=== PATIENT | male | born 2000 | race Caucasian/White ===

== ENCOUNTER 2023-06-06 11:07 | Outpatient (AMB) | payer OTHER, SELFPAY ==
--- NOTE | 2023-06-06 11:33 | MHC.PC.OV ---
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 Patient states that he has a lump in his groin and has pain when he lifts things and thinks he may have a Hernia developing. Patient styates that he has dry skin on his left hand that he would like taken care of. 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: No Accompanied by: Girlfriend Allergies Seasonal Allergies Allergy (Intermediate, Verified 06/06/23 11:47) Sore Throat Medication List - Last Reconciled 06/06/23 by Philip Galloway CNP No Known Home Meds Tobacco use date assessed: 06/06/23 Dental Screening Dental Screen Date: 06/06/23 Did you have a dental visit in the last 12 months?: No Did you have a dental problem in the last 6 months where you did not have access to dental care?: No Was dental information given to patient?: Yes HPI HPI Comments History of Present Illness Details 22-year-old male presents to [facility] care. He notes he was last evaluated by his former PCP 6 years ago and had blood work done a year ago. He reports chronic mid to low back pain for the past 3-4 years. He notes that the pain intensifies while he is working. He has been taking Advil and Ibuprofen with some improvement. He reports occasional numbness. He denies tingling, loss of sensational, loss of bowel or bladder function. He notes that his back has never been evaluated by a medical professional. He also reports pain in his right groin only with lifting. He notes there is a lump in the right groin. His s/s have been present for the past 1 week. 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 He has been on the job for almost 7 years. He reports very skin of his left hand with occasional itching for the past 1 year. He has been applying lotion 3-4 times daily without improvement. He denies h/o anxiety and depression. [facility] Medical History (Updated 06/06/23 @ 12:23 by Philip Galloway CNP) Anxiety Back disorder Surgical History (Updated 06/06/23 @ 11:48 by Mirna Rodriguez MA) No pertinent past surgical history Family History (Updated 06/06/23 @ 11:59 by Mirna Rodriguez MA) Mother High cholesterol Alcoholism Psychiatric disorder Father High cholesterol Cancer Maternal Grandmother High blood pressure Cardiovascular disease Paternal Grandmother High cholesterol Clotting disorder Maternal Grandfather High cholesterol High blood pressure Diabetes Paternal Grandfather Pancreatic cancer Family/Other High cholesterol Psychiatric disorder Other Mental health disorder Social History Housing: House Patient Tobacco Use Status: Never used Tobacco e-Cigarette/Vaping Use: Currently Using Second Hand Smoke Exposure: No service: No Current occupational status: employed Current occupation: [employer] Cognitive needs: No Hearing needs: No Vision needs: No Questionnaire PHQ-9 Over the last 2 weeks, how often have you been bothered by any of the following problems? 1. Little interest or pleasure in doing things: not at all 2. Feeling down, depressed, or hopeless: not at all 3. Trouble falling or staying asleep, or sleeping too much: not at all 4. Feeling tired or having little energy: several days 5. Poor appetite or overeating: several days 6. Feeling bad about yourself - or that you are a failure or have let yourself or your family down: not at all 7. Trouble concentrating on things, such as reading the newspaper or watching television: more than half the days 8. Moving or speaking so slowly that other people could have noticed. Or the opposite - being so fidgety or restless that you have been moving around a lot more than usual: more than half the days 9. Thoughts that you would be better off or of hurting yourself in some way: not at all Total score: 6 Depression Screening Interpretation: Positive Source: Developed by Drs. Lester Vidal, Steffi Correa, Brando Ocampo and colleagues, with an educational denise from [employer]. Thrive Questionnaire Date Thrive assessed: 06/06/23 I am a: Patient What is your living situation today?: I have a steady place to live Within the past 12 months, did the food you bought not last and you didn't have the money to get more?: Never true Within the past 12 months, did you worry whether your food would run out before you got money to buy more?: Never true Do you have trouble paying for medicines?: No Do you have trouble getting transportation to medical appointments?: No Do you have trouble paying your heating and electricity bill?: No Do you have trouble taking care of your child, family member or friend?: No Do you have trouble with day-to-day activities such as bathing, preparing meals, shopping, managing finances, etc.?: Yes Are you currently unemployed and looking for a job?: No Are you interested in more education?: Yes Please select the resources that you would like help with: None Currently or been in a relationship where the following occur: no concerns reported AUDIT C Alcohol Use Questionnaire (AUDIT-C) 1. How often do you have a drink containing alcohol?: 2-3 times a week 2. How many drinks containing alcohol do you have on a typical day when you are drinking?: 3 or 4 3. How often do you have six or more drinks on one occasion?: Never Total Score: 4 ERASTO-7 AMB Questionnaire ERASTO-7 Date ERASTO - 7 assessed: 06/06/23 Feeling nervous, anxious, or on edge: 2 = More than half the days Not being able to stop or control worryin = Several days Worrying too much about different things: 1 = Several days Trouble relaxin = Not at all Being so restless that it is hard to sit still: 1 = Several days Becoming easily annoyed or irritable: 1 = Several days Feeling afraid as if something awful might happen: 0 = Not at all Total ERASTO-7 score (0-4 normal; 5-9 mild; 10-14 moderate; 15-21 severe): 6 Source: Developed by Drs. Lester Vidal, Steffi Correa, Brando Ocampo and colleagues, with an educational denise from [employer]. Review of Systems Const Details: Const Denies chills, Denies fatigue, Denies fever(s), Denies headache(s) and Denies weakness ENT Denies dizziness and Denies headache(s) Card Denies chest pain, Denies lightheadedness, Denies dyspnea and Denies other (Palpitations) Resp Denies cough, Denies dyspnea, Denies wheezing and Denies other ( shortness of breath) GI Denies abdominal pain, Denies melena, Denies hematochezia, Denies change in bowel habits, Denies dyspepsia and Denies nausea Reports pain and lump of the right groin, Denies hematuria and Denies dysuria Musc Reports back pain, Denies abnormal gait, Denies, Denies numbness and Denies tingling Skin/Breast Dry skin of left hand, Denies rash, Denies unusual bruising and Denies wounds Neuro Denies abnormal gait, Denies dizziness, Denies headache(s), Denies memory loss, Denies numbness, Denies Sensory deficit (Neuro), Denies tingling and Denies weakness Psych Denies anxiety and Denies depression, Denies memory loss Endo Denies cold intolerance, Denies fatigue, Denies heat intolerance, Denies polydipsia and Denies polyuria Aller/Immun Denies wheezing Physical exam (Primary Care) Vital Signs: Last Vital Signs Temp 98.6 F 06/06/23 11:35 Pulse 70 06/06/23 11:35 Resp 12 06/06/23 11:35 BP 114/60 06/06/23 11:35 Pulse Ox 99 06/06/23 11:35 Oxygen Delivery Method Room Air 06/06/23 11:35 BMI result Body Mass Index 17.3 Tobacco/Smoking Status: Tobacco use Status Tobacco use date assessed 06/06/23 06/06/23 11:46 Patient Tobacco Use Status Never used Tobacco 06/06/23 11:46 e-Cigarette/Vaping Use Currently Using 06/06/23 11:46 PHQ-9: PHQ-9 Score PHQ-9: Total score 6 06/06/23 11:57 Depression Screening Interpretation: Positive Thrive Assessment: Date of Thrive Assessment Date Thrive assessed 06/06/23 06/06/23 11:57 Currently or been in a relationship where the following occur: no concerns reported Const Other: General: no acute distress and well developed Nutritional Appearance: well nourished Orientation/consciousness: patient oriented x3 HENMT Head: Yes normocephalic and Yes atraumatic Eyes General: appearance normal, both eyes and all related structures Pupils: Equal, round and reactive pupils present EOM: EOMs intact bilaterally Resp Effort & Inspection: normal respiratory effort Auscultation: clear to auscultation bilaterally Cardio Rate: regular rate Rhythm: regular rhythm Heart sounds: S1 normal heart sound present, S2 normal heart sound present, no gallops, no murmurs and no rubs GI Palpation (GI): No Abdominal aortic bruit present, Soft to palpation, nontender, No hepatosplenomegaly present and No Rebound tenderness present Auscultation: normal bowel sounds General: Yes no CVA tenderness Back/Spine/Pelvis Back: no CVA tenderness Cervical Spine: cervical ROM normal and No Cervical spine tenderness Thoracic/Lumbar Spine: thoraco-lumbar ROM normal, No pain with thoraco-lumbar ROM, No thoracic spinal tenderness and No lumbar spinal tenderness Extrem General: Yes normal to inspection, No edema and No calf tenderness Negative straight leg raise bilaterally Skin General: warm and dry. Normal skin color. Normal skin turgor; very dry skin of the left hand Lesions: approx. quarter-sized, lightly tender, soft, mobile lump to the right upper thigh proximal to the groin; no hernia noted to both left and right groin Rashes: no rashes Trauma: no lacerations or abrasions Wounds: no wounds Nails: fungal infection of the nail of the left thumb Neuro General: patient oriented x3, gait normal and no focal neuro deficit Cranial nerves: Yes Equal, round and reactive pupils present Cognition (Neuro): normal cognition Gait exam (Neuro): Normal gait present Motor exam (neuro): 5/5 motor strength present throughout Sensory Exam: No Sensory deficit (Neuro) Deep tendon reflexes (DTR's): Right patellar reflex intensity grade: 2+ and Left patellar reflex intensity grade: 2+ Psych Appearance: grossly normal Affect: normal affect Attitude: cooperative Thought process: Normal thought process present Assessment and Plan Assessment & Plan (1) Chronic back pain: Code(s): M54.9 - Dorsalgia, unspecified; G89.29 - Other chronic pain Plan: Reports chronic mid to low back pain Naproxen ordered. Take as prescribed X-ray ordered Advised to avoid heavy lifting and to use his lower extremities to lift Follow-up in 1 month for labs review and a complete physical exam or return sooner with worsening or new symptoms Verbalized understanding and agreed with the treatment plan. (2) Right groin pain: Code(s): R10.31 - Right lower quadrant pain Plan: Reports pain in his right groin only with lifting. He notes there is a lump in the right groin. His s/s have been present for the past 1 week Approx. quarter-sized, lightly tender, soft, mobile lump to the right upper thigh proximal to the groin; no hernia noted to both left and right groin; likely lipoma Avoid heavy lifting or straining Naproxe as prescribed Follow up with worsening or new s/s Verbalized understanding and agrees with the treatment plan. (3) Dry skin: Code(s): L85.3 - Xerosis cutis Plan: He reports very skin of his left hand with occasional itching for the past 1 year. He has been applying lotion 3-4 times daily without improvement. Very dry skin of the left hand. Onychomycosis of the nail of the left thumb Dry skin may be attributed to fungal infection Ketoconazole ordered. Use as prescribed Follow-up with worsening or new signs and symptoms Verbalized understanding and agreed with treatment plan. (4) Laboratory tests ordered as part of a complete physical exam (CPE): Code(s): Z00.00 - Encounter for general adult medical examination without abnormal findings Plan: Fasting labs ordered as part of a complete physical exam. Advised to fast for at least 10 hours before getting labs drawn. May drink water Verbalized understanding and agreed with treatment plan. Orders: Orders Comprehensive [place]. Panel Fast Today Z00.00 - Encounter for general adult medical examination without abnormal findings Lipid Panel Today Z00.00 - Encounter for general adult medical examination without abnormal findings TSH reflex Free T4 Today Z00.00 - Encounter for general adult medical examination without abnormal findings Complete Blood Count Auto Diff Today Z00.00 - Encounter for general adult medical examination without abnormal findings UA CC w/rflx Micro + Cult Today Z00.00 - Encounter for general adult medical examination without abnormal findings XR thoracic spine 2V Today G89.29 - Other chronic pain, M54.9 - Dorsalgia, unspecified XR lumbar spine 2-3V Today G89.29 - Other chronic pain, M54.9 - Dorsalgia, unspecified Medications: New naproxen 500 mg PO BID PRN 60 tabs 2RF pain ketoconazole 2% 1 appl topical BID 30 grams 0RF Coding Level of Care Code New Pt Level 3 (46707) Diagnoses Chronic back pain M54.9; G89.29 Right groin pain R10.31 Dry skin L85.3 Laboratory tests ordered as part of a complete physical exam (CPE) Z00.00
[2023-06-06 11:35] VITALS: BP 114/60; PULSE 70; RESP 12; TEMP 37; O2SAT 99; BMI 17.3
== END 2023-06-06 12:22 | disposition home or self-care (01) ==
PROVIDERS: PCP Nurse Practitioner Family; Visit Provider Nurse Practitioner Family
DX: M54.9 Dorsalgia, unspecified (principal); G89.29 Other chronic pain; R10.31 Right lower quadrant pain; L85.3 Xerosis cutis; Z00.00 Encounter for general adult medical examination without abnormal findings
CPT/HCPCS: 99203

== ENCOUNTER 2024-09-16 15:02 | Outpatient (AMB) | payer OTHER, SELFPAY ==
--- NOTE | 2024-09-16 15:08 | MHC.PC.OV ---
Vital Signs 09/16/24 15:13 Height 5 ft 5 in Weight 111 lb 2 oz BMI 18.5 BP 112/68 Blood Pressure Location Lt brachial Position Sitting Respiration 12 Pulse 66 Pulse Source Pulse Oximeter Pulse Oximetry (%) 98 Oxygen Delivery Method Room Air Intake Visit Reasons: tetnis shot and refill on meds Intake Note: Patient is here for a tdap and refills on med. 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 He notes significant improvement with ketoconazole, however, he ran out a refills. He denies itching. He has been using CeraVe. He offers no other complaints. He request a tetanus vaccine. His last tetanus vaccine was 14 years ago [facility] Medical History (Updated 09/16/24 @ 15:46 by Philip Galloway CNP) Anxiety Back disorder Surgical History (Updated 06/06/23 @ 11:48 by MICHAEL Lara) No pertinent past surgical history Family History (Updated 06/06/23 @ 11:59 by MICHAEL Lara) Mother High cholesterol Alcoholism Psychiatric disorder Father High cholesterol Cancer Maternal Grandmother High blood pressure Cardiovascular disease Paternal Grandmother High cholesterol Clotting disorder Maternal Grandfather High cholesterol High blood pressure Diabetes Paternal Grandfather Pancreatic cancer Family/Other High cholesterol Psychiatric disorder Other Mental health disorder Social History Housing: House Patient Tobacco Use Status: Never used Tobacco e-Cigarette/Vaping Use: Currently Using Second Hand Smoke Exposure: No service: No Current occupational status: employed 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 1. Little interest or pleasure in doing things: not at all 2. Feeling down, depressed, or hopeless: not at all 3. Trouble falling or staying asleep, or sleeping too much: not at all 4. Feeling tired or having little energy: not at all 5. Poor appetite or overeating: not at all 6. Feeling bad about yourself - or that you are a failure or have let yourself or your family down: not at all 7. Trouble concentrating on things, such as reading the newspaper or watching television: not at all 8. Moving or speaking so slowly that other people could have noticed. Or the opposite - being so fidgety or restless that you have been moving around a lot more than usual: not at all 9. Thoughts that you would be better off or of hurting yourself in some way: not at all Total score: 0 68895 - PHQ-9 Billing: Yes Source: Developed by Drs. Lester Vidal, Steffi Correa, Brando Ocampo and colleagues, with an educational denise from [employer]. Thrive Questionnaire Date Thrive assessed: 09/16/24 I am a: Patient What is your living situation today?: I have a steady place to live Within the past 12 months, did the food you bought not last and you didn't have the money to get more?: Never true Within the past 12 months, did you worry whether your food would run out before you got money to buy more?: Never true Do you have trouble paying for medicines?: No Do you have trouble getting transportation to medical appointments?: No Do you have trouble paying your heating and electricity bill?: No Do you have trouble taking care of your child, family member or friend?: No Do you have trouble with day-to-day activities such as bathing, preparing meals, shopping, managing finances, etc.?: No Are you currently unemployed and looking for a job?: No Are you interested in more education?: No Please select the resources that you would like help with: None Currently or been in a relationship where the following occur: No concerns reported THRIVE Score: 0 AUDIT C Alcohol Use Questionnaire (AUDIT-C) 1. How often do you have a drink containing alcohol?: 2-4 times a month 2. How many drinks containing alcohol do you have on a typical day when you are drinking?: 3 or 4 3. How often do you have six or more drinks on one occasion?: Never Total Score: 3 ERASTO-7 AMB Questionnaire ERASTO-7 Date ERASTO - 7 assessed: 09/16/24 Feeling nervous, anxious, or on edge: 0 = Not at all Not being able to stop or control worryin = Not at all Worrying too much about different things: 0 = Not at all Trouble relaxin = Not at all Being so restless that it is hard to sit still: 0 = Not at all Becoming easily annoyed or irritable: 1 = Several days Feeling afraid as if something awful might happen: 0 = Not at all Total ERASTO-7 score (0-4 normal; 5-9 mild; 10-14 moderate; 15-21 severe): 1 Source: Developed by Drs. Lester Vidal, Steffi Correa, Brando Ocampo and colleagues, with an educational denise from [employer]. ERASTO-7 Assessment Billing ERASTO-7 Assessment Tool: ERASTO-7 Assessment 51487 Review of Systems Const Details: Const Denies chills, Denies fatigue, Denies fever(s), Denies headache(s) and Denies weakness ENT Denies dizziness and Denies headache(s) Card Denies chest pain, Denies lightheadedness, Denies dyspnea and Denies other (Palpitations) Resp Denies cough, Denies dyspnea, Denies wheezing and Denies other ( shortness of breath) GI Denies abdominal pain, Denies melena, Denies hematochezia, Denies change in bowel habits, Denies dyspepsia and Denies nausea Denies hematuria and Denies dysuria Musc Denies abnormal gait, Denies myalgias, Denies arthralgias, Denies numbness and Denies tingling Skin/Breast Denies rash, Denies unusual bruising and Denies wounds Neuro Denies abnormal gait, Denies dizziness, Denies headache(s), Denies memory loss, Denies numbness, Denies Sensory deficit (Neuro), Denies tingling and Denies weakness Psych Denies anxiety, Denies depression, Denies memory loss Endo Denies cold intolerance, Denies fatigue, Denies heat intolerance, Denies polydipsia and Denies polyuria Aller/Immun Denies wheezing Physical exam (Primary Care) Vital Signs: Last Vital Signs Pulse 66 09/16/24 15:13 Resp 12 09/16/24 15:13 BP 112/68 09/16/24 15:13 Pulse Ox 98 09/16/24 15:13 Oxygen Delivery Method Room Air 09/16/24 15:13 BMI result Body Mass Index 18.5 Tobacco/Smoking Status: Tobacco use Status Tobacco use date assessed 06/06/23 09/16/24 15:09 Patient Tobacco Use Status Never used Tobacco 09/16/24 15:09 e-Cigarette/Vaping Use Currently Using 09/16/24 15:09 PHQ-9: PHQ-9 Score PHQ-9: Total score 0 09/16/24 15:23 Thrive Assessment: Date of Thrive Assessment Date Thrive assessed 09/16/24 09/16/24 15:09 Currently or been in a relationship where the following occur: No concerns reported Const Other: General: no acute distress and well developed Nutritional Appearance: well nourished Orientation/consciousness: patient oriented x3 HENMT Head: Yes normocephalic and Yes atraumatic Eyes General: appearance normal, both eyes and all related structures Pupils: Equal, round and reactive pupils present EOM: EOMs intact bilaterally Resp Effort & Inspection: normal respiratory effort Auscultation: clear to auscultation bilaterally Cardio Rate: regular rate Rhythm: regular rhythm Heart sounds: S1 normal heart sound present, S2 normal heart sound present, no gallops, no murmurs and no rubs GI Palpation (GI): No Abdominal aortic bruit present, Soft to palpation, nontender, No hepatosplenomegaly present and No Rebound tenderness present Auscultation: normal bowel sounds General: Yes no CVA tenderness Back/Spine/Pelvis Back: no CVA tenderness Extrem General: Yes normal to inspection, No edema and No calf tenderness Skin General: warm and dry. Normal skin color. Normal skin turgor. Dry skin of the left hand noted. Skin is intact Neuro General: patient oriented x3, gait normal and no focal neuro deficit Cranial nerves: Yes Equal, round and reactive pupils present Cognition (Neuro): normal cognition Gait exam (Neuro): Normal gait present Sensory Exam: No Sensory deficit (Neuro) Psych Appearance: grossly normal Affect: normal affect Attitude: cooperative Thought process: Normal thought process present Immunizations Boostrix Tdap 2.5 Lf unit-8 mcg-5 Lf/0.5 mL intramuscular syringe Performing Provider: Philip Galloway CNP Performing Location: [facility] Administered by: Caryl Bernstein RN on 11/06/24 15:36 Dose Route Admin Location Dispensed Lot Number Expiration Date [employer] Mechan[employer] Apprentice 0.5 mL IM Right Deltoid 0.5 mL [id number] 09/26/26 54808-702-23 [employer] VIS Given Date VIS Provided VIS Publication Date 09/16/24 Single Vaccine 21 Eligibility Eligibility Date Funding Source Not VFC Eligible 09/16/24 Private Coding Level of Care Code Est Pt Level 3 (92062) Diagnoses Dry skin L85.3 Vaccine for tetanus toxoid Z23 Laboratory tests ordered as part of a complete physical exam (CPE) Z00.00 Additional Codes ERASTO-7 Assessment Billing - ERASTO-7 Assessment Tool: ERASTO-7 Assessment 12766 ([id number]) PHQ-9 - 47963 - PHQ-9 Billing: Yes ([id number]) Assessment & Plan Assessment & Plan (1) Dry skin: Code(s): L85.3 - Xerosis cutis Category: Medical Plan: Dry skin of the left hand for the past 2 years Dry skin of the left hand noted. Skin is intact Encouraged to use Lubriderm extra-dry skin lotion Follow-up if dry skin persist. May referred to dermatology Advised to get lab work done and follow-up for an extended physical exam and lab reviews Verbalized understanding and agreed with the treatment plan (2) Vaccine for tetanus toxoid: Code(s): Z23 - Encounter for immunization Category: Medical Plan: Tdap administered today by our nurse (3) Laboratory tests ordered as part of a complete physical exam (CPE): Code(s): Z00.00 - Encounter for general adult medical examination without abnormal findings Category: Medical Plan: Fasting labs ordered as part of a complete physical exam. Advised to fast for at least 10 hours before getting labs drawn. May drink water Verbalized understanding and agreed with treatment plan. Orders: Orders TDaP Immunization Today Z23 - Encounter for immunization Complete Blood Count Auto Diff Today Z00.00 - Encounter for general adult medical examination without abnormal findings Lipid Panel Today Z00.00 - Encounter for general adult medical examination without abnormal findings TSH reflex Free T4 Today Z00.00 - Encounter for general adult medical examination without abnormal findings Comprehensive [place]. Panel Fast Today Z00.00 - Encounter for general adult medical examination without abnormal findings UA CC w/rflx Micro + Cult Today Z00.00 - Encounter for general adult medical examination without abnormal findings
[2024-09-16 15:13] VITALS: BP 112/68; PULSE 66; RESP 12; O2SAT 98; BMI 18.5
== END 2024-09-16 15:35 | disposition home or self-care (01) ==
LOC: HO.HMCFM 15:03
PROVIDERS: PCP Nurse Practitioner Family; Visit Provider Nurse Practitioner Family
DX: L85.3 Xerosis cutis (principal); Z23 Encounter for immunization; Z00.00 Encounter for general adult medical examination without abnormal findings

== ENCOUNTER → 2024-09-16 15:02 | Outpatient (BNVA) | payer OTHER, SELFPAY | PROVIDERS: PCP Nurse Practitioner Family; Visit Provider Nurse Practitioner Family | DX: Z00.00 Encounter for general adult medical examination without abnormal findings (principal); Z23 Encounter for immunization; L85.3 Xerosis cutis | CPT/HCPCS: 90471; 90715; 96127 ==

== ENCOUNTER 2025-01-11 07:13 | Outpatient (REF) | payer OTHER, SELFPAY ==
--- OUTSIDE RECORDS SUMMARY | 2025-01-11 07:17 | XMS_ITS | Clinical Summary ---
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 Role Phone Unavailable Primary Care Provider Unavailabl e Social History Tobacco Use Types Packs/Day Years Used Date Smoking Tobacco: Never Assessed Sex and Gender Information Value Date Recorded Sex Assigned at Not on file Legal Sex Male 8:28 PM EST Gender Identity Not on file Sexual Orientation Not on file Plan of Treatment Health Maintenance Due Date Last Done Comments HPV Vaccines (1 - Male 3-dos e series) 2014 DTaP,Tdap,and Td Vaccines (1 - Tdap) 2018 Hepatitis B Vaccines (1 of 3 - 19+ 3-dose series) 2018 Depression Screening 12/06/2023 HIV Screening 12/06/2023 Hepatitis C Screening 12/06/2023 Social Influencers of Health Screening 12/06/2023 COVID-19 Vaccine ( - 2023-2 5 season) 2024 Influenza Vaccine (#1) 2024 HIB Vaccines Aged Out No longer eligi ble based on patient's age to complete this topic Hepatitis A Vaccines Aged Out No long er eligible based on patient's age to complete this topic IPV Vaccines Aged Out No longer eligi ble based on patient's age to complete this topic MMR Vaccines Aged Out No longer eligi ble based on patient's age to complete this topic Meningococcal ACWY Vaccine Aged Out N o longer eligible based on patient's age to complete this topic Meningococcal B Vacine Aged Out No lo nger eligible based on patient's age to complete this topic Pneumococcal Vaccine: Pediat rics (0 to 5 Years) and At-Risk Patients (6 to 64 Years) Aged Out No longer eligible b ased on patient's age to complete this topic RSV Immunization Patients Un brandon 20 months Aged Out No longer eligible b ased on patient's age to complete this topic Varicella Vaccines Aged Out No longer eligible based on patient's age to complete this topic
[2025-01-11 07:32] LABS: MANUAL DIFF FLAG NO
[2025-01-11 07:44] LABS: Basophils Absolute Auto 0.1 X10*3/uL (0.0-0.2); Eosinophils Absolute Auto 0.2 X10*3/uL (0.0-0.4); Eosinophils Percent Auto 3.5 % (0-4); Imm Gran Abs Auto 0.01 X10*3/uL (0.00-0.03); Imm Gran Pct Auto 0.2 % (0.0-0.4); Lymphocytes Absolute Auto 2.3 X10*3/uL (1.2-4.9); Lymphocytes Percent Auto 38.3 % (20-40); Mean Corpuscular HGB Conc 34.8 g/dl (31.0-36.0); Mean Corpuscular Hemoglobin 27.8 pg (27.0-33.0); Mean Corpuscular Volume 79.9 fL (80.0-98.0); Mean Platelet Volume 9.1 fL (9.4-12.4); Monocytes Absolute Auto 0.5 X10*3/uL (0.1-1.2); Monocytes Percent Auto 7.6 % (2-11); Neutrophils Percent Auto 49.4 % (45-73); Platelet Count 257 X10*3/uL (160-400); Red Blood Count 5.76 X10*6/uL (4.60-5.80); Red Cell Distribution Width 11.9 % (11.0-16.0)
[2025-01-11 08:20] LABS: Alanine Aminotransferase 27 U/L (0-40); Albumin Level 4.4 g/dL (3.5-5.0); Alkaline Phosphatase 69 U/L (39-117); Anion Gap 11 (12-20); Aspartate Amino Transferase 24 U/L (5-37); Bilirubin Total 0.4 mg/dL (0.0-1.0); Blood Urea Nitrogen 20 mg/dL (9-16); Calcium 9.2 mg/dL (8.4-10.2); Carbon Dioxide 28 mmol/L (22-29); Chloride 105 mmol/L (96-108); Cholesterol 174 mg/dL (<200); Estimated Glomerular Filt Rate > 60; Glucose Fasting 96 mg/dL (60-99); HDL Cholesterol 41 mg/dL (>40); LDL Cholesterol Calculated 118 mg/dL (<100); Potassium 4.2 mmol/L (3.3-5.1); Sodium 140 mmol/L (135-145); Total Protein 7.7 g/dL (6.5-8.0); Triglycerides 78 mg/dL (<150)
== END 2025-01-11 07:14 | disposition home or self-care (01) ==
LOC: HO.LAB 07:13
PROVIDERS: PCP Nurse Practitioner Family; Visit Provider Nurse Practitioner Family
DX: Z00.00 Encounter for general adult medical examination without abnormal findings (principal); Z13.220 Encounter for screening for lipoid disorders; Z13.29 Encounter for screening for other suspected endocrine disorder; Z13.0 Encounter for screening for diseases of the blood and blood-forming organs and certain disorders involving the immune mechanism
CPT/HCPCS: 36415; 80053; 80061; 84443; 85025

== ENCOUNTER 2025-01-12 08:04 | Outpatient (AMB) | payer OTHER, SELFPAY ==
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
[2025-01-12 08:10] VITALS: BP 111/53; PULSE 76; RESP 16; TEMP 36.7; O2SAT 97; BMI 19.0
--- OUTSIDE RECORDS SUMMARY | 2025-01-12 08:12 | XMS_ITS | Clinical Summary ---
Author Organization [facility] ity Address [address] [place] [address] Care Team Providers Care Supervisor Blasting Name Role Phone Unavailable Primary Care Provider [...]
--- OUTSIDE RECORDS SUMMARY | 2025-01-12 08:12 | XMS_ITS | Clinical Summary ---
Author Organization [facility] Address [address] [place] [address] Care Team Providers Care Reference Library Assistant Name Role Phone Unavailable Primary Care Provider Unavailabl e Social History Tobacco Use Types Packs/Day Years Used Date Smoking Tobacco: Never Assessed Sex and Gender Information Value Date Recorded Sex Assigned at Male 10/15/2022 12:32 PM EST Gender Identity Not on file Sexual Orientation Not on file Job Start Date Occupation Industry Not on file Not on file Not on file Plan of Treatment Health Maintenance Due Date Last Done Comments Hepatitis B Vaccines (1 of 3 - 3-dose series) 1999 Hepatitis C Screening 1999 COVID-19 Vaccine (#1) 01/05/2000 Depression Screening 2011 Preventative Health Evaluation 2017 DTap / Tdap / Td (1 - Tdap) 2018 Influenza Vaccine (#1) 2024 Pneumococcal Vaccine Aged Out No long er eligible based on patient's age to complete this topic RSV Ped < 20 months Aged Out No longe r eligible based on patient's age to complete this topic
== END 2025-01-12 08:33 | disposition home or self-care (01) ==
PROVIDERS: PCP Nurse Practitioner Family; Visit Provider Nurse Practitioner Family
DX: Z00.00 Encounter for general adult medical examination without abnormal findings (principal); E78.00 Pure hypercholesterolemia, unspecified; L85.3 Xerosis cutis

== ENCOUNTER → 2025-01-12 08:04 | Outpatient (BNVA) | payer OTHER, SELFPAY | PROVIDERS: PCP Nurse Practitioner Family; Visit Provider Nurse Practitioner Family | DX: Z00.00 Encounter for general adult medical examination without abnormal findings (principal); E78.00 Pure hypercholesterolemia, unspecified; L85.3 Xerosis cutis | CPT/HCPCS: 96127 ==

== ENCOUNTER 2025-04-10 07:31 | Outpatient (REF) | payer OTHER, SELFPAY ==
[2025-04-10 12:12] LABS: Cholesterol 170 mg/dL (<200); HDL Cholesterol 41 mg/dL (>40); LDL Cholesterol Calculated 118 mg/dL (<100); Triglycerides 56 mg/dL (<150)
[2025-04-10 12:36] LABS: Appearance Urine Clear; Color Urine Yellow; Glucose Urine UA Negative (Negative); Leukocyte Esterase Urine Trace (Negative); Nitrite Urine Negative (Negative); Specific Gravity - Urine 1.015 (1.005-1.025); UMIC TRIGGER UACC YES; Urine Blood Negative (Negative); Urine Ketones Negative (Negative); Urine Protein Negative (Neg-Trace)
[2025-04-10 12:42] LABS: Bacteria Urine None Seen (None Seen); Hyaline Casts Urine 0-2 /LPF (0-2); RBC Urine 0-2 /HPF (0-2); Squamous Epithelial Cell Urine 0-2 /HPF (0-2); WBC Urine 0-5 /HPF (0-5)
== END 2025-04-10 07:32 | disposition home or self-care (01) ==
LOC: HO.HMGCLDS 07:31
PROVIDERS: PCP Nurse Practitioner Family; Visit Provider Nurse Practitioner Family
DX: E78.00 Pure hypercholesterolemia, unspecified (principal)
CPT/HCPCS: 36415; 80061; 81001; 81003

== ENCOUNTER 2025-04-13 15:20 | Outpatient (AMB) | payer OTHER, SELFPAY ==
--- NOTE | 2025-04-13 15:17 | A.OFFPC_ITS ---
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 He admits to making healthy dietary choices and exercising routinely. No acute symptoms at this time. [facility] Medical History (Updated 01/12/25 @ 08:33 by Philip Galloway CNP) Anxiety Back disorder Surgical History (Updated 06/06/23 @ 11:48 by MICHAEL Lara) No pertinent past surgical history Family History (Updated 06/06/23 @ 11:59 by MICHALE Lara) Mother High cholesterol Alcoholism Psychiatric disorder Father High cholesterol Cancer Maternal Grandmother High blood pressure Cardiovascular disease Paternal Grandmother High cholesterol Clotting disorder Maternal Grandfather High cholesterol High blood pressure Diabetes Paternal Grandfather Pancreatic cancer Family/Other High cholesterol Psychiatric disorder Other Mental health disorder Social History Housing: House Patient Tobacco Use Status: Never used Tobacco e-Cigarette/Vaping Use: Currently Using Second Hand Smoke Exposure: No service: No Current occupational status: employed 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 Lester Vidal, Steffi Correa, Brando Ocampo and colleagues, with an educational denise from [employer]. Review of Systems Const Details: Denies chills, Denies fatigue, Denies fever(s), Denies headache(s) and Denies weakness Cardiac Denies chest pain, Denies claudication, Denies leg edema, Denies lightheadedness, Denies palpitations, Denies dyspnea, Denies dyspnea on exertion, Denies orthopnea and Denies other (Loss of consciousness) Resp Denies cough, Denies excessive phlegm production, Denies dyspnea, Denies dyspnea on exertion, Denies snoring and Denies wheezing Physical exam (Primary Care) Tobacco/Smoking Status: Tobacco use Status Tobacco use date assessed 04/13/25 04/13/25 15:19 Patient Tobacco Use Status Never used Tobacco 04/13/25 15:19 e-Cigarette/Vaping Use Currently Using 04/13/25 15:19 Thrive Assessment: Date of Thrive Assessment Date Thrive assessed 01/12/25 04/13/25 15:19 Const Other: Patient is alert and oriented x3 Telehealth Telehealth Telehealth Platform: Telephone Location of provider rendering services: practice address Location of patient: address on file Patient Identification confirmed using: Name, : Yes Telehealth method: voice only Patient verbally consented to treatment: Yes Patient verbally consented to billing insurance company: Yes Patient informed of any privacy concerns related to visit: Yes Coding Level of Care Code Tele Est Pt Level 3 (17170) Diagnoses Elevated LDL cholesterol level E78.00 Time Spent (min) 10 Assessment & Plan Assessment & Plan (1) Elevated LDL cholesterol level: Code(s): E78.00 - Pure hypercholesterolemia, unspecified Category: Medical Plan: Recent LDL level is slightly elevated, 118. Previous that was 118. HDL level is normal. Advised to limit foods high in saturated fat and avoid foods high in trans fat. Routine exercise encouraged. Will monitor lipid panel annually or if presents with related symptoms or concerns. Verbalized understanding and agreed with the plan.
--- OUTSIDE RECORDS SUMMARY | 2025-04-13 16:49 | XMS_ITS | Clinical Summary ---
Author Organization [facility] Address [address] [place] [address] Care Team Providers Care Power Brake Rebuilder Name Role Phone Unavailable Primary Care Provider [...] Td (1 - Tdap) 2018 Influenza Vaccine (Season Ended) 2025 Pneumococcal Vaccine Aged Out No long er eligible based on patient's age to complete this topic RSV Ped < 20 months Aged Out No longe r eligible based on patient's age to complete this topic
== END 2025-04-13 17:06 | disposition home or self-care (01) ==
LOC: HO.HMCFM 15:20
PROVIDERS: PCP Nurse Practitioner Family; Visit Provider Nurse Practitioner Family
DX: E78.00 Pure hypercholesterolemia, unspecified (principal)

== ENCOUNTER → 2025-04-13 15:20 | Outpatient (BNVA) | payer OTHER, SELFPAY | PROVIDERS: PCP Nurse Practitioner Family; Visit Provider Nurse Practitioner Family | DX: Z13.89 Encounter for screening for other disorder (principal) ==